=== PATIENT | male | born 1950 | race Caucasian/White ===

== ENCOUNTER 2024-11-21 22:18 | Inpatient (IN) | payer MEDICARE, OTHER, SELFPAY ==
[2024-11-21] VITALS (18 sets, daily range): BP systolic 91–190; BP diastolic 70–141; BMI 27.7
[2024-11-21 19:10] LABS: Hematocrit 46.3 % (39.0-52.0); Hemoglobin 16.0 g/dL (13.0-18.0); Mean Corp Hgb Conc. 34.6 g/dL (33.0-37.0); Mean Corpuscular Volume 86.5 fL (80.0-94.0); Nucleated Red Blood Cells % 0 % (-); Platelet Count 200 10^3/uL (130-400); Red Cell Dist. Width 13.2 % (11.5-14.5)
--- NOTE | 2024-11-21 19:16 | EDRN ---
per dr. kumar it's ok to give 4th nitro for ongoing chest pain
--- NOTE | 2024-11-21 19:18 | ED.GENMED ---
History of Present Illness
General
Chief Complaint: Chest Pain
Source: patient
Time Seen by Provider: 11/21/24 19:05
History of Present Illness
History of Present Illness:
74-year-old male presents emergency department complaints of central chest pain associated with discomfort at scapula bilaterally that began at approximately 2 PM today and continues. He states he came in now because he saw his early education teacher first
who referred him to the emergency department. He denies associated diaphoresis, dyspnea, nausea, vomiting, abdominal pain, headache, dizziness, numbness, tingling, neck pain. Patient does not feel the pain goes through to his back and is not
ripping or tearing in quality. It was not abrupt in onset. Patient denies prior history of CAD.
Past History
Past History
ED Past Medical History: HTN and Hypothyroidism
Social History
Tobacco: Non-smoker
Drug: None
Personal:
Living: with family
Phy Exam
Physical Exam
Physical Exam:
GENERAL: Alert , in no apparent distress
EYE: pupils equal and reactive
NECK: Supple, no significant adenopathy.
ENT: o/p clr, mmm.
CARDIAC: Regular rate and rhythm .
LUNGS: Clear breath sounds bilaterally, no acute respiratory distress, no wheezes/rales/rhonchi
ABDOMEN: Soft, without focal tenderness, no r/g, no cvat
NEUROLOGICAL: Alert and oriented, no focal neuro deficits
SKIN: Warm and dry, skin intact.
MUSCULOSKELETAL: No edema, well perfused.
PSYCH: Normal and appropriate interaction.
Course
Orders/Labs/Results
Orders:
Orders
11/21/24 18:45
Electrocardiogram (*1) Urgent
Reason for Study: Chest Pain
11/21/24 18:46
EKG- Treatment ONCE
11/21/24 19:01
Basic Metabolic Panel Urgent
Complete Blood Count/With Diff Urgent
PTT Urgent
Troponin I Urgent
11/21/24 19:20
Fentanyl Citrate/Pf [Sublimaze] 100 mcg .ROUTE .STK-MED ONE
Heparin 10,000 units .ROUTE .STK-MED ONE
Heparin 1000 Units/500 ml [Heparin] 1,000 units in 500 ml .ROUTE .STK-MED
Heparin Sodium,Porcine/Ns/Pf [Heparin 2000 Units/1000 ml] 2,000 unit in 1,000 ml .ROUTE .STK-MED
Lidocaine HCl/Pf [Xylocaine-Mpf 1% Vial] 100 mg .ROUTE .STK-MED ONE
Midazolam HCl [Versed] 2 mg .ROUTE .STK-MED ONE
Verapamil Injectable [Isoptin/Verapamil Injection] 5 mg .ROUTE .STK-MED ONE
11/21/24 19:21
Nitroglycerin [Tridil] 1,500 mcg .ROUTE .STK-MED ONE
11/21/24 19:44
Metoprolol [Lopressor] 5 mg .ROUTE .STK-MED ONE
11/21/24 19:45
Furosemide [Lasix] 20 mg .ROUTE .STK-MED ONE
Abnormal Lab Results
11/21/24
19:01
WBC 20.9 H 10^3/uL
(4.8-10.8)
MPV 11.2 H fL
(7.4-10.4)
Abs Immat Gran (auto) 0.1 H 10^3/uL
(0-0.05)
Absolute Neuts (auto) 19.0 H 10^3/uL
(1.4-6.5)
Neutrophils % 90.8 H %
(42.2-75.2)
Lymphocytes % 6.3 L %
(20.5-51.1)
Sodium 134 L mmol/L
(135-145)
BUN 28 H mg/dl
(9-20)
Glucose 234 H mg/dl
(70-99)
Troponin I 11.400 H* ng/ml
11/21/24 19:01
11/21/24 19:01
Vital Signs
Initial and Last Documented VS:
Initial Vital Signs
Temp Pulse Resp BP Pulse Ox
98.2 F 94 16 190/141 98
11/21/24 18:49 11/21/24 18:49 11/21/24 18:49 11/21/24 18:49 11/21/24 18:49
Last Documented Vital Signs
Temp Pulse Resp BP Pulse Ox
98.2 F 89 13 165/118 94
11/21/24 18:49 11/21/24 19:15 11/21/24 19:15 11/21/24 19:15 11/21/24 19:21
*Pulse Oximetry
SaO2: 94
Oxygen Mode of Delivery: Room air
Update Note
Update Note:
Patient presents to the Emergency Department with ___chest pain
Number and Complexity of Problems Addressed at the Encounter
� Chronic conditions affecting care:
� Acute Exacerbation and/or Progression of Chronic Illness:
� Differential Diagnosis includes: But not limited to STEMI, non-STEMI, ACS, pleurisy, pericarditis, etc. etc.
Amount and/or Complexity of Data to be Reviewed and Analyzed
� I performed an independent evaluation of and my interpretation is:
EKG: STEMI noted with ST elevations in the anterior leads with associated ST depressions inferiorly
CT:
Xrays:
Laboratory Studies: Nonspecific leukocytosis, markedly elevated troponin consistent with STEMI
Other:
� Review of other/old records reveals:
� Clinical information was obtained by an independent historian:
� Prescriptions/Medications Considered but not given:
� Further testing considered but not performed:
Risk of Complications and/or Morbidity or Mortality of Patient Management
� Social determinants of health affecting care:
� Discussion with other providers (PCP, Hospitalists, Consultants, etc):
� Escalation of care including admission/observation vs risk of discharge considered: While patient in triage, EKG brought to me consistent with STEMI, STEMI alert called and patient brought immediately back to room 40.
Medications initiated, IV placed, patient on monitor. Pain is improving status post nitroglycerin. Hypertension noted, continue with nitroglycerin. Case discussed with Dr. Marquita FLANAGAN who is on her way and as is the rest of the Fire Hydrant Operator team.
now at bedside, she was updated regarding diagnosis and plan of care. Patient overall well-appearing, no distress, no respiratory distress, no diaphoresis.
ED Attending Note
-
Portions of this chart may have been created with voice recognition software.� Occasional wrong word or��sound alike� substitutions may have occurred due to the inherent limitations of voice recognition software.
Discharge Plan
Departure
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
Date of Disposition: 11/21/24
Time of Disposition: 19:18
Admit to: minilab operator
Presentation/result/management discussed w/ accepting MD/DO: isac
Discharge Problem:
ST elevation (STEMI) myocardial infarction
Referrals:
Geo Villanueva MD [Family Provider, Internal Medicine]
Interventions
Interventions:
*Risk Screen - Suicide Last Done: 11/21/24 18:49
*General Assessment Last Done: 11/21/24 19:12
*Neglect/Abuse Screening Last Done: 11/21/24 18:49
*ED- Fall Risk Assessment Last Done: 11/21/24 19:12
*ED COVID-19 Vaccine History Last Done: 11/21/24 19:12
*ED Influenza Vaccine History Last Done: 11/21/24 19:12
ED- Cardiac Assessment Last Done: 11/21/24 19:16
Discharge Date and Time
Print Language: MEXICAN
[2024-11-21 19:19] LABS: APTT 23.6 Sec (23.4-35.0)
[2024-11-21 19:25] LABS: Blood Urea Nitrogen 28 mg/dl (9-20); Calcium 9.5 mg/dl (8.4-10.2); Carbon Dioxide 26 mmol/L (22-30); Chloride 100 mmol/L (98-107); Estimated Creatinine Clearance 49 ml/min; Glucose 234 mg/dl (70-99); Sodium 134 mmol/L (135-145); eGFR 58.01
[2024-11-21 19:38] LABS: Troponin I 11.400 ng/ml
[2024-11-21 19:55] LABS: ACT-LR - POC 189 Seconds (116-155)
[2024-11-21 20:15] LABS: ACT-LR - POC 277 Seconds (116-155)
[2024-11-21 21:18] LABS: ACT-LR - POC 300 Seconds (116-155)
[2024-11-21 21:51] LABS: ACT-LR - POC 268 Seconds (116-155)
--- NOTE | 2024-11-21 22:26 | HPS.HSE ---
Family Physician
-
Family Physician: Geo Villanueva
Chief Complaint
-
Chest pain
History of Present Illness
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 Given ongoing
symptoms he called his to pick him up who brought him to the emergency room. He had 8 out of 10 chest pain ongoing in the emergency room. He tells me that over the weekend he has been doing well and not having any symptoms. He continues to
work without any limitations. His ECG on presentation showed significant anterolateral ST elevations concerning for a ST elevation PR for which the heart catheterization team was activated. In the ED he received 4 sublingual nitroglycerin, 5000
units of IV unfractionated heparin, full dose aspirin and 180 mg of Brilinta. With this his chest pain had come down to 5.5 out of 10. Patient was emergently brought to the heart catheterization lab after detailed informed consent.
Medical History
Past Medical History
Past Medical History: Reports CVA, HTN and Hypothyroidism
Additional Past Medical History:
Stroke of unclear etiology years ago per the patient, no residual deficits.
Past Surgical History: Reports None
Social History
Tobacco: Non-smoker
Alcohol: None
Drug: None
Personal:
Living: With Family
Employment: Employed
Family History
Family History: Not pertinent
Allergies / Home Medications
Allergies reflects when Allergies were last updated in [employer].
Home Medications with original date entered in [employer]
Losartan 12.5 mg daily.
? Mixed formulary from specialty pharmacy for hypothyroidism
Allergy/Medication List:
Allergic to amoxicillin.
Review of Systems
-
A 12 point ROS was completed and negative except as noted: Yes
Physical Exam
Vital Signs
Vital Signs
Temp Pulse Resp BP Pulse Ox
98.2 F 88 13 165/118 93
11/21/24 18:49 11/21/24 19:30 11/21/24 19:30 11/21/24 19:15 11/21/24 19:30
Physical Exam
General: Well Developed, Well Nourished and Appears in Distress
HEENT: Moist mucous membranes
Respiratory: Rales and Non Labored Respirations
Cardiac: S1/S2, Tachycardia and JVD; No Peripheral Edema
GI: Soft, Non Tender, Non Distended and Normal Bowel Sounds
Genito-urinary: Deferred by me
Musculoskeletal: No Clubbing, No Cyanosis and No Edema
Skin: Warm and Dry
Neuro: AO x 3
Psych: Other
Laboratory Results
-
11/21/24 19:01
11/21/24 19:01
Laboratory Results
APTT 23.6 Sec (23.4-35.0) 11/21/24 19:01
Total Bilirubin Cancelled 11/21/24 19:01
AST Cancelled 11/21/24 19:01
ALT Cancelled 11/21/24 19:01
Alkaline Phosphatase Cancelled 11/21/24 19:01
Troponin I 11.400 ng/ml H* 11/21/24 19:01
Data Reviewed
-
Medical Tests (Nuc Med, Echo, EKG etc): Image Personally Visualized and interpreted
Impression/Plan
-
IMPRESSION: 74-year-old gentleman with past medical history of hypertension, hypothyroidism who presents with substernal chest discomfort radiating to his scapula starting about 2 PM while he was on his way to his materials branch chief/holistic doctor.
Given ongoing symptoms he called his to pick him up who brought him to the emergency room. He had 8 out of 10 chest pain ongoing in the emergency room. He tells me that over the weekend he has been doing well and not having any symptoms. He
continues to work without any limitations. His ECG on presentation showed significant anterolateral ST elevations concerning for a ST elevation PR for which the heart catheterization team was activated. In the ED he received 4 sublingual
nitroglycerin, 5000 units of IV unfractionated heparin, full dose aspirin and 180 mg of Brilinta. With this his chest pain had come down to 5.5 out of 10. Patient was emergently brought to the heart catheterization lab after detailed informed
consent.
Anterolateral ST elevation PR with 100% proximal LAD occlusion status post one 3.5 x 30 mm Medtronic [place] frontier drug-eluting stent, postdilated using IVUS guidance with a 3.75 mm NC balloon distally at high pressures and 4.0 mm NC balloon
proximally at high pressures with an excellent angiographic and IVUS based result.
Diffuse 70 to 80% mid LAD stenosis treated with one 2.75 x 26 mm Medtronic [place] frontier drug-eluting stent, postdilated using IVUS guidance with a 3.0 x 15 mm NC balloon at high pressures proximally.
Hypertension
Hypothyroidism
PLAN: 1. Extensively discussed all of the above with and [id number] in significant detail. They notified me that patient is very skeptical about Western medicine and believes in holistic approach. He is very skeptical investment
medications. Discussed and emphasized importance of medication compliance and at the urines and will continue to have discussions with patient.
2. Under uninterrupted dual antiplatelet therapy with daily baby aspirin and Brilinta for at least 1 year and then aspirin indefinitely.
3. High intensity statin. Check lipids and hemoglobin A1c with plan to aggressively manage secondary risk factors.
4. Given significant hypertension he was started on IV nitroglycerin drip to keep blood pressure systolically less than 150. Starting 2.5 mg of daily amlodipine and Toprol-XL as well. Given unclear baseline CKD holding home losartan for now.
5. Will have medicine consult for his hypothyroid management or clarify which medication he takes to continue.
6. Echocardiogram to assess biventricular function and rule out any significant valvular abnormalities.
7. Continue monitor on telemetry for at least 48 hours.
8. Referral for outpatient cardiac rehab.
--- NOTE | 2024-11-21 22:33 | ITS.CL.CATH ---
Coin Collector - Catheterization
Cardiac Catheterization
Procedure Report:
LEFT HEART CATHETERIZATION AND CORONARY INTERVENTION
Date of Procedure: November 21, 2024
Referring: [facility]
PROCEDURES:
1. Left heart catheterization, coronary angiogram.
2. Moderate sedation.
3. Successful percutaneous coronary artery intervention of 100% proximal LAD occlusion (Lesion Type C, LUISA 0 flow) status post one 3.5 x 30 mm Medtronic [place] frontier drug-eluting stent, postdilated using IVUS guidance with a 3.75 mm NC balloon
distally at high pressures and 4.0 mm NC balloon proximally at high pressures with an excellent angiographic and IVUS based result.
4. Successful percutaneous coronary artery intervention of diffuse 70 to 80% mid LAD stenosis treated with one 2.75 x 26 mm Medtronic [place] frontier drug-eluting stent, postdilated using IVUS guidance with a 3.0 x 15 mm NC balloon at high pressures
proximally.
5. IVUS
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
Given ongoing symptoms he called his to pick him up who brought him to the emergency room. He had 8 out of 10 chest pain ongoing in the emergency room. He tells me that over the weekend he has been doing well and not having any symptoms. He
continues to work without any limitations. His ECG on presentation showed significant anterolateral ST elevations concerning for a ST elevation [place] for which the heart catheterization team was activated. In the ED he received 4 sublingual
nitroglycerin, 5000 units of IV unfractionated heparin, full dose aspirin and 180 mg of Brilinta. With this his chest pain had come down to 5.5 out of 10. Patient was emergently brought to the heart catheterization lab after detailed informed
consent.
ACCESS: Right radial artery, 6Fr. sheath, under US guidance.
HEMODYNAMICS : (mmHg)
AO (s/d) : 143/117
LVEDP : 37
No significant gradient across the aortic valve to suggest aortic stenosis.
CORONARY FINDINGS
Dominance: Right
Left Main Trunk (LMT): Large caliber vessel that gives rise to the LAD and LCx branches and is free of angiographic disease. There is mild diffuse atherosclerotic plaque.
Left Anterior Descending Artery (LAD): Large caliber LAD with 100% proximal acute thrombotic occlusion and moderate calcification. This was intervened upon as noted below.
Left Circumflex Artery (LCx): Large caliber vessel that gives off 1 major obtuse marginal (OM) branches as it courses along the atrio-ventricular (AV) groove. Mid left circumflex into major OM branch has diffuse lesions up to 80% stenosis.
Right Coronary Artery (RCA): Large caliber dominant vessel that gives rise to the posterior descending artery (RPDA) and postero-lateral ventricular (RPLV) branches distally. Mid RCA has significant tortuosity and a hairpin turn proximal to the
bifurcation. Otherwise there is mild diffuse atherosclerotic plaque.
CORONARY INTERVENTION: The left coronary artery was selectively engaged using a 6 [place] EBU 3.5 guide. Additional heparin was given to maintain a therapeutic ACT throughout the case. A 190 cm 0.014 run-through wire was advanced into the mid LAD.
The culprit lesion was initially predilated using a 2.5 x 12 mm semicompliant balloon with LUISA I flow into the distal vessel. Multiple inflations were performed. The lesion was stented using a 3.5 x 30 mm Medtronic [place] frontier drug-eluting
stent and postdilated using a 3.75 mm NC balloon at high pressures distally and 4.0 mm NC balloon at high pressures proximally based on IVUS guidance. Unfortunately there were still significant no reflow noted for which multiple bouts of
intracoronary vasodilators were delivered using a twin pass microcatheter including nitroglycerin IC, adenosine IC and epinephrine. Despite this with persistently poor flow, decision was made to proceed with percutaneous intervention of diffuse 70
to 80% mid LAD stenosis. This lesion was predilated using a 2.5 x 20 mm semicompliant balloon with full expansion and subsequently stented using a 2.75 x 26 mm Medtronic [place] frontier drug-eluting which was postdilated using IVUS guidance with a
3.0 x 15 mm NC balloon at high pressures with an excellent angiographic and IVUS based result. Post PCI IVUS imaging showed that both stents were well apposed and well-expanded without evidence of distal or proximal stent edge dissections. Patient
had been loaded with 180 mg of Brilinta in the emergency room prior to the case. No acute complications.
SEDATION: 87 minutes of procedural sedation was utilized. IV Midazolam and IV Fentanyl were administered. An independent medical radiation therapist was present to assist with and help manage the patient's level of consciousness and physiologic status.
CORONARY INTERVENTION:
Closure Device: There were no immediate intra-procedural complications. The sheath was pulled in the dental lab technician and a vascular-band applied to the right wrist for radial artery hemostasis using the patent hemostasis technique.
CONCLUSIONS
1. Successful percutaneous coronary artery intervention of 100% proximal LAD occlusion (Lesion Type C, LUISA 0 flow) status post one 3.5 x 30 mm Medtronic [place] frontier drug-eluting stent, postdilated using IVUS guidance with a 3.75 mm NC balloon
distally at high pressures and 4.0 mm NC balloon proximally at high pressures with an excellent angiographic and IVUS based result.
2. Successful percutaneous coronary artery intervention of diffuse 70 to 80% mid LAD stenosis treated with one 2.75 x 26 mm Medtronic [place] frontier drug-eluting stent, postdilated using IVUS guidance with a 3.0 x 15 mm NC balloon at high pressures
proximally.
3. Mid left circumflex into major OM branch has diffuse lesions up to 80% stenosis.
4. Significantly elevated LVEDP at 37 mmHg.
RECOMMENDATIONS
1. Wean radial band per protocol. Monitor right hand perfusion and for bleeding from the radial site following removal of the vascular-band following trans-radial access.
2. Continue aggressive medical therapy and risk factor modification for secondary CAD prevention.
3. Continue ASA 81 mg daily for life.
4. Continue ticagrelor for at least 12 months of uninterrupted dual anti-platelet therapy given drug-eluting stent (MALIK) implantation to mitigate the risk of stent thrombosis. This is not to be stopped for any reason without the guidance of a
medical lab tech instructor.
5. Hydrate with normal saline to mitigate the risk of contrast-induced acute kidney injury.
6. Referral for outpatient cardiac rehab.
7. Echocardiogram to assess biventricular function and rule out any significant valvular abnormalities.
8. Discussed timing of staged intervention to mid left circumflex into OM.
Bonita Juarez MD, FACC, [facility]
[2024-11-21] MEDS: NORVASC 2.5 MG PO (23:11)
[2024-11-21] MEDS: CRESTOR 40 MG PO (23:11)
[2024-11-21] MEDS: TOPROL XL 25 MG PO (23:12)
[2024-11-22] VITALS (62 sets, daily range): BP systolic 76–148; BP diastolic 65–126; BMI 26.9
[2024-11-22 01:02] LABS: Troponin I > 400.000 ng/ml
--- NOTE | 2024-11-22 01:20 | PTCARENOTE ---
Received pt from stucco laborer @ 2210. Access through right radial. External pressure device-- 10 cc of air. Went on @ 21:59. Two stents to the proximal LAD. Pt came out with nitro gtt running @ 30 mcg through left AC. Pt c/o urinary pressure and the
inability to urinate-- order obtained for straight cath-- 800cc urine obtained. Pt drowsy, but responding to verbal cues. Discussed plan of care-- pt verbalizes understanding. Call bowling within reach.
--- NOTE | 2024-11-22 01:25 | PTCARENOTE ---
Pt c/o SOB and chest pain @ 00:30. Reached out to Dr. Juarez and Stanley Marr (CV PA). Order given for Nitro-- see APR. Pt stats 95% on 2L NC. Lung buenrostro clear. Pt does appear anxious and restless. Discussed plan of care-- pt verbalizes
understanding. Lights turned off, extra tubes and wires removed, and pt verbalizes feeling better.
--- NOTE | 2024-11-22 01:30 | PTCARENOTE ---
Pt's trop came back >400.000-- notified Stanley Marr (CV PA) per protocol
--- NOTE | 2024-11-22 02:07 | PTCARENOTE ---
Pt having hematuria-- each time pt has urinated, it has become darker. Denies discomfort with urination.
[2024-11-22] MEDS: MORPHINE SULFATE 1 MG IV (02:27)
--- NOTE | 2024-11-22 02:47 | PTCARENOTE ---
Pt continued to complain about chest, upper back, and neck pain rating it (9/10). EKG obtained, pt remains SR w/ 1st AV block. Unchanged from previous EKG per Stanley DODGE. RN reached out to Stanley Marr (NAYA DODGE)-- ordered morphine one time order.
When RN went in to check BP and administer, pt had a drop in BP to 81/67. Pt noncompliant with leaving cuff alone and on; needs feq reminders to not touch bp cuff-- RN readjusted cuff and got 76/65 BP. Pt was asymptomatic. Pt put into Trendelenburg
and pillow placed under legs-- nitro paused-- NAYA Marr at bedside. BP recovered to 99/88 and then 121/99. NAYA Angel instructed RN to resume nitro gtt at 15mcg/min and ok to administer one time order of morphine for chest/back pain.
Pt has been vague with symptoms. Noncompliant with BP cuff and precautions with radial site. External hemostasis band removed without issue @ 0240. Educated on precautions again.
[2024-11-22 04:39] LABS: Hematocrit 41.4 % (39.0-52.0); Hemoglobin 14.4 g/dL (13.0-18.0); Mean Corp Hgb Conc. 34.8 g/dL (33.0-37.0); Mean Corpuscular Volume 87.3 fL (80.0-94.0); Platelet Count 184 10^3/uL (130-400); Red Cell Dist. Width 13.1 % (11.5-14.5)
[2024-11-22 05:15] LABS: Blood Urea Nitrogen 25 mg/dl (9-20); Calcium 8.6 mg/dl (8.4-10.2); Carbon Dioxide 26 mmol/L (22-30); Chloride 102 mmol/L (98-107); Estimated Creatinine Clearance 49 ml/min; Glucose 185 mg/dl (70-99); HDL Cholesterol 54 mg/dl; LDL Cholesterol, Calculated 105 mg/dl; Potassium 4.1 mmol/L (3.5-5.1); Sodium 136 mmol/L (135-145); Very Low Density Lipoprotein 12 mg/dl (0-30); eGFR 58.01
[2024-11-22 05:39] LABS: Troponin I 335.000 ng/ml
[2024-11-22 09:09] LABS: Glycohemoglobin (HgbA1c) 5.1 % (4.0-5.6)
[2024-11-22] MEDS: TOPROL XL 25 MG PO (09:24)
[2024-11-22] MEDS: LOW STRENGTH ASPIRIN 81 MG PO (09:25)
[2024-11-22] MEDS: NORVASC 2.5 MG PO (09:25)
[2024-11-22] MEDS: HEPARIN 5000 UNITS SC ×2 (09:25→20:19)
[2024-11-22] MEDS: BRILINTA 90 MG PO ×2 (09:25→20:17)
[2024-11-22] MEDS: ZOFRAN 4 MG IV (09:26)
--- NOTE | 2024-11-22 09:27 | W.PN.CARDCBS ---
Addendum entered and electronically signed by Bonita Juarez MD 11/22/24 14:33:
I saw and examined the patient.
The Sole Edge Inker Machine's note was reviewed and I agree with the note.
Comment: Patient continues to describe some shortness of breath even at rest. She denies any recurrent chest discomfort or shoulder discomfort
Vital signs and lab work reviewed. Blood pressures intermittently still elevated. On exam there is a very flat affect, regular rate, normal S1 and S2, no murmurs, rubs or gallops, JVD with neck veins up to 10 cm of water, bibasilar rales, abdomen
is soft, nontender, nondistended with active bowel sounds, warm extremities without significant edema.
Troponin peaked and more than 400 and is downtrending. ECG showing signs of recent infarct.
Recommendations:
1. Extensive time was spent reviewing everything with the patient and explaining what happened and need for medications. With 2 LAD PCI in the setting of a ST elevation [place], continue dual antiplatelet therapy with daily baby aspirin and Brilinta
along with high intensity statin with LDL goal less than 55.
2. Echocardiogram pending today. Given significant troponin elevation, I suspect likely ischemic cardiomyopathy from recent infarct.
3. Aggressive IV diuresis given acute decompensated heart failure.
4. Aggressive management of cardiovascular risk factors. For now using amlodipine and beta-obi but depending on LVEF may have to switch medications to optimize GDMT.
5. Trend creatinine along with hemoglobin. Hemoglobin A1c is pending.
6. Referral for outpatient cardiac rehab.
7. Emphasize importance of a high-fiber Mediterranean type diet and medication compliance/adherence.
8. Discussed with him recommendation for staged PCI to mid left circumflex into OM however patient would like to think about this for now.
Bonita Juarez MD, [facility], [facility]
Original Note:
Today's Communication / Plan
-
Echo today
IV lasix this morning
zofran for nausea
cardiac rehab
cm consult re: med cost- brilinta, farxiga
check thyroid studies
UA/Culture
monitor tele another 24-48h
Impression / Plan
-
PCP: Geo Segovia MD
CDY: None prior to admission, seen by Bonita Juarez MD
74 y/o, PMH HTN, Hypothyroidism. He endorses a recent UTI and was treated with 10 day course bactrim, and when he developed mild hematuria on day 9, he was instructed to stop it and start QID amoxicillin. This in turn gave him nausea, diarrhea and
chest pain, which landed him in the ER as noted. He states he takes losartan 12.5mg daily as well as aspirin 81mg daily for a stroke that was approx 20 years ago, found on diagnostic studies, per pt.
New onset SSCP rad to scapula/back initially attributed to antibiotics for UTI, brought him to ER after persistent symptoms. Denies any prior cp and works without limitation. Progressive CP in ER 09/[address]ations on EKG and
brought emergently to foundry laborer coreroom. Post LAD PCI x2 MALIK. Still with some residual chest pain and nausea this morning, but states it has improved since arrival.
LHC- 100% prox LAD, s/p angioplasty/MALIK
70-80% diffuse mid LAD, s/p angioplasty/MALIK
75-85% mid LCx/OM
LVEDP 37- 20mg IV lasix given post procedure
IMPRESSION:
Acute Anterolateral STEMI
s/p LAD PCI w/Prox MALIK, Mid MALIK, 11/21/24
Residual LCx/OM disease- likely staged PCI as outpt
HTN
HLD
Hypothyroidism
Remote CVA
Recent UTI w/hematuria
PLAN:
Tele- NSR w/occasional 4-8bt NSVT, asymptomatic
Residual chest pain/nausea- zofran ordered
Troponin peak >400, now drifting down
DAPT w/asa, brilinta- CM checking cost
Echo today
Moderate response to lasix post procedure with elevated LVEDP- will give additional 40mg IV now for some dyspnea- await echo results- will have cm check farxiga cost as well
New start metoprolol 25mg/d- will manager of change to carvedilol 3.125mg BID, amlodipine 2.5mg/d- monitor trends
Supposedly taking losartan 12.5/d prior to admission but BPs 190s on arrival, creat 1.3- BPs now improved and creat stable post dye load- will monitor before restarting
Lipid profile noted- start high intensity statin therapy- rosuvastatin 40/d
cardiac rehab today
Residual LCx/OM CAD- will likely stage PCI as outpt
check TSH, FT4 today
Will sent repeat UA/Culture- denies any dysuria/hematuria
long discussion re: diagnosis, meds, treatment, risks of noncompliance, all questions answered. Requested medication profiles and RN will provide.
Followup at [facility] at d/c
monitor on tele another 24-48h
Progress Note - Signs And Displays Sales Representative
Subjective
Date of Service: November 22, 2024
Mild chest pain 2-3/10, improved since arrival and post stenting
Also some dyspnea as well as nausea/dry heaving this morning
radial cath site without pain
oob to chair/bathroom but with some fatigue and weakness this morning
Objective
Labs:
11/22/24 04:06
11/22/24 04:06
Labs
Hgb 14.4 g/dL (13.0-18.0) 11/22/24 04:06
Hct 41.4 % (39.0-52.0) 11/22/24 04:06
Plt Count 184 10^3/uL (130-400) 11/22/24 04:06
APTT 23.6 Sec (23.4-35.0) 11/21/24 19:01
Sodium 136 mmol/L (135-145) 11/22/24 04:06
Potassium 4.1 mmol/L (3.5-5.1) 11/22/24 04:06
BUN 25 mg/dl (9-20) H 11/22/24 04:06
Creatinine 1.3 mg/dL (0.7-1.3) 11/22/24 04:06
Glucose 185 mg/dl (70-99) H 11/22/24 04:06
Troponins
11/21/24 11/21/24 11/22/24
19:01 23:23 04:06
Troponin I 11.400 H* > 400.000 H* D 335.000 H*
Vital Signs and I&O:
Vital Signs
Temp Pulse Resp BP Pulse Ox
98.1 F 75 16 139/113 95
11/22/24 07:53 11/22/24 09:24 11/22/24 07:53 11/22/24 09:24 11/22/24 07:53
Vital Signs
Temp Pulse Resp BP Pulse Ox
98.1 F 75 16 139/113 95
11/22/24 07:53 11/22/24 09:24 11/22/24 07:53 11/22/24 09:24 11/22/24 07:53
Intake & Output
11/20/24 11/21/24 11/22/24 11/23/24
06:59 06:59 06:59 06:59
Intake Total 480 / 480
Output Total 950 / 950
Balance -470 / -470
Physical Exam
Physical Exam
AAOX3, MAEE 5/5
RRR S1 S2 no murmurs
CTA bilat, non labored
soft abd, + bs
right radial cath site with some ecchymosis/bruising, no ht/bleeding, non tender
bilat extremities w/palpable distal pulses, no edema
[2024-11-22 10:47] LABS: Urine Character Clear (Clear)
[2024-11-22 10:53] LABS: Urine Red Blood Cell 50-60 /HPF (0-2); Urine White Cell 16-20 /HPF (0-5)
--- NOTE | 2024-11-22 11:47 | CM ---
spoke topt in room, he is prev indep, lives with his s.o. in a 1 story condo with no steps to enter. he denies any dme's or dc planning needs. plan is for dc to home when medically stable. awaiting his s.o. with his wallet for his insurance cards.
[2024-11-22 11:52] LABS: Troponin I 209.000 ng/ml
[2024-11-22 11:55] LABS: TSH 0.77 uIU/ml (0.47-4.68)
[2024-11-22] MEDS: LASIX 40 MG IV (12:17)
[2024-11-22] MEDS: COREG 3.125 MG PO ×2 (12:17→20:18)
--- NOTE | 2024-11-22 14:30 | CM ---
Addendum entered by Enriqueta Molina 11/22/24 15:19:
priced: pt can use good RX for ticagrelor- $32/month and farxiga 30 day free along with the zero copay card. pt is aware and agreeable. both coupons placed in pts red dc folder
Original Note:
priced meds with pts perscript plan- [facility]-
brilinta first month- $371.37- after he pays the remaining $590 deductible he pays 31% of tier 4 med or- $114/month
Farxiga- first month is $514.84- then he pays 19% of the cost of tier 3 med or- 114/month
--- NOTE | 2024-11-22 16:26 | CM ---
priced entresto- his copay is $135/month he can use the 30 day free coupon, placed in pts red dc folder
--- NOTE | 2024-11-22 16:28 | CM ---
[facility] [place]- pt can get ticagrelor at [facility] for $32/month with a good rx coupon ( placed in pts red dc folder.)
[facility] [place]- his first month he can use the 30 day free coupon- after that pt pay 19% cost of med for tier 3 - approx $114
[2024-11-22] MEDS: LASIX 80 MG IV (16:43)
[2024-11-22] MEDS: CRESTOR 40 MG PO (16:44)
[2024-11-22] MEDS: ENTRESTO 24 MG/26 MG 1 TAB PO (20:18)
[2024-11-22] MEDS: TYLENOL 650 MG PO (20:26)
[2024-11-23] VITALS (28 sets, daily range): BP systolic 56–145; BP diastolic 30–119; BMI 26.7
[2024-11-23 05:01] LABS: Hematocrit 42.5 % (39.0-52.0); Hemoglobin 14.9 g/dL (13.0-18.0); Mean Corp Hgb Conc. 35.1 g/dL (33.0-37.0); Mean Corpuscular Volume 85.3 fL (80.0-94.0); Platelet Count 148 10^3/uL (130-400); Red Cell Dist. Width 13.1 % (11.5-14.5)
--- NOTE | 2024-11-23 05:19 | PTCARENOTE ---
Addendum entered by Siri Myers RN 11/23/24 05:46:
Pt OOB to the scale. Pt started leaning to the left side, stare blankly, not responding to the questions and became unresponsive. Pt safely assisted to the bed. Pt regained consciousness in a few seconds. Pt able to answer all questions, following
commands. BP 107/81 HR 73. Pt stated that he 'felt lightheaded because he didn't sleep and had too much blood pressure medications.' Pt instructed to use call bowling for any assistance or get out of bed. Safety measures in place. CVPA made aware.
Original Note:
Critical abnormal EKG in am. CVPA made aware. Pt denies chest pain. No new orders
[2024-11-23 05:25] LABS: Blood Urea Nitrogen 36 mg/dl (9-20); Calcium 9.1 mg/dl (8.4-10.2); Carbon Dioxide 25 mmol/L (22-30); Chloride 101 mmol/L (98-107); Estimated Creatinine Clearance 40 ml/min; Glucose 131 mg/dl (70-99); Potassium 4.0 mmol/L (3.5-5.1); Sodium 133 mmol/L (135-145); eGFR 45.21
[2024-11-23] MEDS: COREG 3.125 MG PO (09:53)
[2024-11-23] MEDS: ENTRESTO 24 MG/26 MG 1 TAB PO (09:53)
[2024-11-23] MEDS: LOW STRENGTH ASPIRIN 81 MG PO (09:53)
[2024-11-23] MEDS: FARXIGA 10 MG PO (09:53)
[2024-11-23] MEDS: HEPARIN 5000 UNITS SC (09:53)
[2024-11-23] MEDS: BRILINTA 90 MG PO ×2 (09:53→20:11)
[2024-11-23] MEDS: LASIX 40 MG IV (09:54)
--- NOTE | 2024-11-23 10:02 | W.PN.CARDCBS ---
Today's Communication / Plan
-
Increase activity. Continue to follow on telemetry.
Continue aspirin and Brilinta.
Hemoglobin stable at 14.
LDL at 105. Continue Crestor.
White blood cell count remains elevated with abnormal UA. May need to consult ID.
LVEF 30 to 35%. Continue carvedilol. Creatinine up to 1.6 and he has some low blood pressure. Will hold p.m. Entresto and follow. Continue Farxiga.
He has diuresed and we will hold off on further Lasix for now until creatinine settles out.
Elevated creatinine could be from some mild contrast-induced nephropathy from cardiac cath
Discussed plan at length with patient and .
Tentative plan is for left circumflex PCI Monday
Impression / Plan
-
PCP: Geo Segovia MD
CDY: None prior to admission, seen by Bonita Juarez MD
74 y/o, PMH HTN, Hypothyroidism. He endorses a recent UTI and was treated with 10 day course bactrim, and when he developed mild hematuria on day 9, he was instructed to stop it and start QID amoxicillin. This in turn gave him nausea, diarrhea and
chest pain, which landed him in the ER as noted. He states he takes losartan 12.5mg daily as well as aspirin 81mg daily for a stroke that was approx 20 years ago, found on diagnostic studies, per pt.
New onset SSCP rad to scapula/back initially attributed to antibiotics for UTI, brought him to ER after persistent symptoms. Denies any prior cp and works without limitation. Progressive CP in ER 09/[address]ations on EKG and
brought emergently to labor representative. Post LAD PCI x2 MALIK. Still with some residual chest pain and nausea this morning, but states it has improved since arrival.
LHC- 100% prox LAD, s/p angioplasty/MALIK
70-80% diffuse mid LAD, s/p angioplasty/MALIK
75-85% mid LCx/OM
LVEDP 37- 20mg IV lasix given post procedure
IMPRESSION:
Acute Anterolateral STEMI
s/p LAD PCI w/Prox MALIK, Mid MALIK, 11/21/24
Residual LCx/OM disease-
HTN
HLD
Hypothyroidism
Remote CVA
Recent UTI w/hematuria
Echocardiogram November 22, 2024, EF 30 to 35%, severe hypokinesis of the mid to distal anterior, anteroseptal, and inferoapical wall. Mild MR, mild to moderate TR, PA pressure 37
PLAN:
Patient overall remains relatively stable. Creatinine is up to 1.6. Will hold Entresto today.
Cath results and echo were reviewed with patient and . He is agreeable to proceed with circumflex PCI on Monday.
Continue aspirin, Brilinta, carvedilol.
Weight is overall down. With creatinine up to 1.6 will hold off on diuresis. PA pressure on echo was in the 30s.
Continue Farxiga.
Urinalysis is abnormal with white cells and leukocyte esterase's. Await urine culture. May need ID help regarding recent UTI and elevated white blood cell count.
We had a lengthy discussion regarding the pathophysiology of coronary artery disease and long-term management.
Telemetry did have a brief 3 beat run of nonsustained ventricular tachycardia. Continue to follow.
Increase activity today.
Followup at [facility] at d/c
Progress Note - Discharge Planner
Subjective
Date of Service: November 23, 2024
No new chest pains. Denies any dizziness.No palpitations.
Objective
Labs:
11/23/24 03:41
11/23/24 03:41
Labs
Hgb 14.9 g/dL (13.0-18.0) 11/23/24 03:41
Hct 42.5 % (39.0-52.0) 11/23/24 03:41
Plt Count 148 10^3/uL (130-400) 11/23/24 03:41
APTT 23.6 Sec (23.4-35.0) 11/21/24 19:01
Sodium 133 mmol/L (135-145) L 11/23/24 03:41
Potassium 4.0 mmol/L (3.5-5.1) 11/23/24 03:41
BUN 36 mg/dl (9-20) H 11/23/24 03:41
Creatinine 1.6 mg/dL (0.7-1.3) H 11/23/24 03:41
Glucose 131 mg/dl (70-99) H 11/23/24 03:41
Troponins
11/21/24 11/21/24 11/22/24
19:01 23:23 04:06
Troponin I 11.400 H* > 400.000 H* D 335.000 H*
11/22/24
10:42
Troponin I 209.000 H* D
Vital Signs and I&O:
Vital Signs
Temp Pulse Resp BP Pulse Ox
97.8 F 81 18 107/81 93
11/23/24 03:37 11/23/24 06:30 11/23/24 03:37 11/23/24 04:49 11/23/24 03:37
Vital Signs
Temp Pulse Resp BP Pulse Ox
97.8 F 81 18 107/81 93
11/23/24 03:37 11/23/24 06:30 11/23/24 03:37 11/23/24 04:49 11/23/24 03:37
Intake & Output
11/21/24 11/22/24 11/23/24 11/24/24
06:59 06:59 06:59 06:59
Intake Total 480 / 480
Output Total 950 / 950 1075 / 1075
Balance -470 / -470 -1075 / -1075
Physical Exam
Physical Exam
GEN: No distress, awake, Ox3
HEENT: supple, anicteric, mmm
LUNGS: CTA, no wheezes/rales
CV: Reg, S1/S2, 1/6 syst LSB, S3+
ABD: soft, BS+, NT/ND
EXT: No edema
NEURO: Gross non-focal
SKIN: No rash
[2024-11-23] MEDS: CORDARONE 103 MG IV ×2 (11:37→17:35)
[2024-11-23] MEDS: CORDARONE 259 MG IV ×2 (11:49→18:23)
--- NOTE | 2024-11-23 11:59 | W.PN.UPDATE ---
Update Note
Progress Note Update
Called to see patient for new onset atrial fibrillation with rapid ventricular rates and marked hypotension. The patient was having episodes of dizziness this morning and then went suddenly into rapid atrial fibrillation. His systolic blood
pressure was 65/40. The patient was laid supine. He was awake and conversing. IV amiodarone 150 mg bolus was given and ventricular rate improved from 150 bpm to 110 bpm. An amiodarone drip was initiated.
IV Levophed was initiated and a drip was started. Systolic blood pressure improved to 90/60. The patient's dizziness did slightly improve
He will be transferred to the intensive care unit for further close monitoring and blood pressure support with Levophed. Will start IV heparin.
If he remains hypotensive, will need to consider cardioversion. I would prefer to start amiodarone and have that medicine on board prior to cardioversion unless unstable.
Discussed with family and inspector advanced composite.
cc time 48 minutes
--- NOTE | 2024-11-23 12:10 | PTCARENOTE ---
Received pt @ 0700. Pt is AAOx3 SR on the monitor VSS. denies cp. Rt radial cath site dressing c/d/i. Pt was instructed to call nurse prior to ambulation bed alarm in use.
--- NOTE | 2024-11-23 12:16 | RR ---
A Rapid Response was called on this patient, please see Rapid Response form.
--- NOTE | 2024-11-23 12:17 | PTCARENOTE ---
Approximately 1105 Pt was in A fib RVR on the monitor. EKG done BP 88/77. Pt c/o dizziness repeat sbp 60's MANAGER OF ADMINISTRATION was called and Dr. Song at bedside. Amio bolus and gtt up and Levophed initiated. Pt was transferred to higher level of care. See
Flowsheet for VS
--- NOTE | 2024-11-23 12:37 | PTCARENOTE ---
1110 Bp 68/49 NSS IVF w/o
[2024-11-23] MEDS: PITRESSIN 100 IV ×2 (13:00→20:12)
--- NOTE | 2024-11-23 13:14 | OR.RPT ---
Operative Report
Operative Report
Left Radial Arterial catheter placement
Indication. Hypotension, 2 pressors infusing, need for invasive blood pressure monitoring
Consent: Informed consent was obtained from patient
Bedside ultrasound was used to confirm patency of left radial artery. Under sterile condition area was subsequently cleaned and a drape was placed. 1 mL of lidocaine was injected locally for local anesthesia. Under direct ultrasound
visualization,, radial artery was cannulated. Once blood was noted in the chamber guidewire was advanced. Arterial catheter was subsequently advanced over the guidewire, and then guidewire was removed. Pressure tubing was subsequently attached to
the catheter and arterial waveform was noted on the monitor. Subsequently a dressing was placed.
Complications: None
Date of service: 11/23/2024
--- NOTE | 2024-11-23 13:16 | CON.INTV ---
Consultation
Consultation Request
Date/Time Consultation Requested: 11/23/2024
Date/Time Consultation Performed: 12/03/2024
Medical History
-
Chief Complaint: Palpitations, hypotension
History of Present Illness:
Patient is a 74 gentleman with history of hypertension, hypothyroidism who presented to the hospital with substernal chest discomfort radiating to scapular region. Patient was noted to have elevated troponin and was diagnosed with ST elevation [place].
Patient was emergently taken to Staff Climate Scientist and had PCI performed of LAD. He was recovering well postprocedure. On 11/23, patient developed palpitations, atrial fibrillation with rapid ventricular rate as well as hypotension. Rapid response was
called. Patient was given amiodarone bolus followed by infusion. Hypotension persisted and he was started on Levophed, subsequently transferred to ICU. Sap Portal Developer consultation was requested for further input.
During my evaluation patient was initially on Levophed at 6, quickly escalated up to 14 in view of hypotension. Vasopressin was emergently added, emergent A-line was placed. Discussed with cardiology service.
Past Medical History
Past Medical History: Reports CVA, HTN and Hypothyroidism
Additional Past Medical History:
Stroke of unclear etiology years ago per the patient, no residual deficits.
Past Surgical History: Reports None
Social History
Tobacco: Non-smoker
Alcohol: None
Drug: None
Personal:
Living: With Family
Employment: Employed
Family History
Family History: Not pertinent
Allergies / Home Medications
Allergies
Allergy/AdvReac Type Severity Reaction Status Date / Time
amoxicillin Allergy nausea/diar Verified 11/22/24 15:56
katerine
Home Medications
�Medication �Instructions �Recorded �Confirmed �Last Taken �Type
aspirin 81 mg chewable tablet 81 mg PO DAILY 11/22/24 11/22/24 Unknown History
carvedilol 3.125 mg tablet 3.125 mg PO BID #60 tabs 11/22/24 Unknown Rx
dapagliflozin propanediol 10 mg 10 mg PO DAILY #30 tabs 11/22/24 Unknown Rx
tablet
losartan 25 mg tablet 12.5 mg PO DAILY 11/22/24 11/22/24 Unknown History
rosuvastatin 40 mg tablet 40 mg PO DAILY #30 tabs 11/22/24 Unknown Rx
sacubitril 24 mg-valsartan 26 mg 1 tab PO BID #60 tabs 11/22/24 Unknown Rx
tablet
ticagrelor 90 mg tablet 90 mg PO BID #60 tabs 11/22/24 Unknown Rx
Review of Systems
-
Neuro: Other (Feels cold, mildly dizzy. Reports palpitations. No chest pain, no shortness of breath.)
Vitals / Labs / Diagnostic Testing
Vital Signs
Temp Pulse Resp BP Pulse Ox
97.9 F 131 22 87/76 88
11/23/24 12:04 11/23/24 13:00 11/23/24 13:00 11/23/24 13:00 11/23/24 12:50
Microbiology
11/22/24 10:37 Urine Urine Culture - Final
No Significant Growth
Diagnostic Testing:
Physical Exam
-
HEENT: Normocephalic
Cardiovascular: S1/S2 (Tachycardic, irregularly irregular rhythm) and Irregular Rhythm
Respiratory: Clear
GI: Soft and Non Distended
Neurology: Awake and Alert
Skin: Warm
General: Comfortable
Assessment
-
#1. STEMI
- s/p PCI of LAD on 11/21/24
- Chest pain-free, currently on aspirin, Brilinta, rosuvastatin.
- Carvedilol on hold in view of hypotension, hold Entresto as well
#2. Atrial fibrillation with RVR and hypotension
- Patient developed A-fib with RVR on 11/23.
- Rapid response called in view of hypotension. Patient given amiodarone bolus followed by infusion. Required Levophed hence transferred to ICU
- Rising Levophed drip noted up to 14, added vasopressin, arterial line placed
- Cardiology service on case, monitor response to amiodarone, low threshold to proceed with cardioversion in view of hemodynamic instability
- Heparin infusion
#3. HFrEF with LEVF 30-35%, Stage I diastolic dysfunction
- Hold off any maintenance IV fluids
- Entresto on hold in view of hypotension
- Suspect ischemic cardiomyopathy in the setting of myocardial infarction
#4. Mild Pulmonary HTN
- PASP 37, Mild to moderate TR, suspect Group II with HFrEF
- Keep oxygen saturation above 90%, target euvolemia
Other medical diagnoses:
- HTN
- HLD
- Hypothyroidism
- h/o CVA
- Pyuria, cultures negative
DVT prophylaxis. Heparin drip being started for atrial fibrillation
Critical Care time 68 mins -- The patient is admitted for acute critical illness for the treatment of vital organ failure and/or prevention of further life-threatening conditions. Total care includes time spent in review of history, physical exam,
medications, hemodynamic/ventilator parameters, laboratory data, imaging and discussion with house staff, pharmacy, respiratory therapy, building construction foreman, and nursing.
Data:
ECHO 11/2024: 1. Normal LV size with moderately decreased left ventricular function.
2. Ejection fraction is 30-35% by visual assessment.
3. There is severe hypokinesis of the mid to distal anterior, mid to distal anteroseptal, apical and inferoapical torres.
4. Mild left ventricular hypertrophy.
5. Stage I diastolic dysfunction suggestive of abnormal relaxation.
6. Right ventricular size and systolic function are within normal limits.
7. Mild mitral valve regurgitation.
8. Mild to moderate tricuspid regurgitation. Estimated pulmonary artery pressure of 37 mmHg assuming a right atrial pressure of 3 mmHg.
9. Aortic annulus is mildly dilated at 3.7cm
10. Trivial pericardial effusion is noted.
11. There are no prior studies available for comparison.
[facility] 11/2024: 1. Successful percutaneous coronary artery intervention of 100% proximal LAD occlusion (Lesion Type C, LUISA 0 flow) status post one 3.5 x 30 mm Medtronic [place] frontier drug-eluting stent, postdilated using IVUS guidance with a 3.75 mm
NC balloon distally at high pressures and 4.0 mm NC balloon proximally at high pressures with an excellent angiographic and IVUS based result.
2. Successful percutaneous coronary artery intervention of diffuse 70 to 80% mid LAD stenosis treated with one 2.75 x 26 mm Medtronic [place] frontier drug-eluting stent, postdilated using IVUS guidance with a 3.0 x 15 mm NC balloon at high pressures
proximally.
3. Mid left circumflex into major OM branch has diffuse lesions up to 80% stenosis.
4. Significantly elevated LVEDP at 37 mmHg.
[2024-11-23] MEDS: HEPARIN 25000 UNITS/250 ML IV (13:17)
[2024-11-23 14:29] LABS: Hematocrit 40.4 % (39.0-52.0); Hemoglobin 14.3 g/dL (13.0-18.0); Mean Corp Hgb Conc. 35.4 g/dL (33.0-37.0); Mean Corpuscular Volume 84.5 fL (80.0-94.0); Platelet Count 150 10^3/uL (130-400); Red Cell Dist. Width 13.2 % (11.5-14.5)
--- NOTE | 2024-11-23 14:39 | ITS.CL.CARDI ---
Internetworking Technician - Cardioversion
Cardioversion
Procedure Report:
Date of Procedure: 11/23/24
Procedure: Cardioversion
Indication: Symptomatic atrial fibrillation with unstable BP
Performing Physician: Adams Song MD
Technique: The patient was in the ICU with rapid ventricular rates and marked hypotension. IV Amiodarone, Levophed and vasopressin were started with continued hypotension. Consent obtained and pt sedated via anesthesia.
Urgent CV was performed. using 200J, 360J, and 360J of synchronized biphasic current, the patient failed CV x3
Conclusion: Failed cardioversion from atrial fibrillation to sinus rhythm.
Recommendation: Routine post cardioversion care. Continue anticoagulation and load with oral Amiodarone..
[2024-11-23 14:52] LABS: Blood Urea Nitrogen 41 mg/dl (9-20); Calcium 7.7 mg/dl (8.4-10.2); Carbon Dioxide 16 mmol/L (22-30); Chloride 103 mmol/L (98-107); Estimated Creatinine Clearance 34 ml/min; Glucose 199 mg/dl (70-99); Magnesium 2.0 mg/dl (1.6-2.3); Potassium 4.0 mmol/L (3.5-5.1); Sodium 127 mmol/L (135-145); eGFR 36.79
--- NOTE | 2024-11-23 15:02 | CON.ID ---
Consultation
-
Date/Time Consultation Requested: 11/23/2024 1010
Date/Time Consultation Performed: 11/23/2024 1500
Requesting Provider: Dr. Song
Performing Provider: Dr. Guy
Reason for Consultation: Leukocytosis
Chief Complaint / Past History
History of Present Illness
Bayron Finn is a 74-year-old man being evaluated at the request of Dr. Delgadillo in regards to leukocytosis. History is obtained from chart review, along with patient interview.
The patient has a significant past medical history of HTN and hypothyroidism and presented to the emergency room at [facility] on 11/21/2024 with complaints of central chest pain beginning earlier in the day. His initial EKG showed
significant anterior lateral ST elevations, and the patient was taken emergently to the [facility] where he was found to have a 100% proximal LAD occlusion. Earlier today, he developed A-fib with rapid ventricular response and subsequent hypotension.
He has been started on Levophed and transferred to the ICU. Since admission he has had a marked leukocytosis which has risen. Given the leukocytosis and an abnormal urinalysis, there is concern for possible urinary tract infection contributing to
hypotension. Infectious Diseases is asked to comment on further antimicrobial therapy.
Currently the patient denies any fevers or chills. He denies any current chest pain. He reports some dysuria present, but he does currently have a Johnson catheter in place. The patient reports that he previously was on a course of antibiotics
prescribed by his PCP. He believes that they may have been prescribed because of his elevated white count, but is not sure at this time.
Past History
Additional Past Medical History:
HTN
Hypothyroidism
CAD with recent AL
Past Surgical History: None
Allergy History:
amoxicillin Allergy (Verified 11/22/24 15:56)
nausea/diarrhea
Medications Reviewed: Yes
Current Antibiotics:
None
Social History
Tobacco: Non-Smoker
Alcohol: None
Drug: None
Personal:
Living: With Family
Employment: Employed
Family History
Family History: Not Pertinent
Review of Systems
Vital Signs
Temp Pulse Resp BP Pulse Ox
97.9 F 131 22 87/76 88
11/23/24 12:04 11/23/24 13:00 11/23/24 13:00 11/23/24 13:00 11/23/24 12:50
Physical Exam
Physical Exam
Constitutional: Acutely Ill and Non-toxic
Head: Normocephalic
Eyes: Pupils Equal, Pupils Round, No Conjunctival Hemorrhage and Sclera Anicteric
Oral: No Thrush and No Ulcers
Cardiovascular: Irregular Rate (tachy) and S1/S2; Negative S3/S4 or Murmur
Pulmonary: Clear; Negative Wheezes, Rales or Rhonchi
Gastrointestinal: Soft, Non Tender, Non Distended and Normal Bowel Sounds
Genito-Urinary: Johnson and Clear Urine; Negative Turbid Urine or Hematuria
Extremities: Edema; Negative Cyanosis or Erythema
Neurological: Awake and Alert
Psychological: Calm
Lab / Diagnostic Study Results
11/23/24 14:23
11/23/24 14:23
Abs Immat Gran (auto) 0.1 10^3/uL (0-0.05) H 11/21/24 19:01
Absolute Neuts (auto) 19.0 10^3/uL (1.4-6.5) H 11/21/24 19:01
Absolute Lymphs (auto) 1.3 10^3/uL (1.2-3.4) 11/21/24 19:01
Absolute Monos (auto) 0.5 10^3/uL (0.1-0.6) 11/21/24 19:01
Absolute Basos (auto) 0.1 10^3/uL (0-0.2) 11/21/24 19:01
Immature Gran % 0.5 % (0-0.5) 11/21/24 19:01
Neutrophils % 90.8 % (42.2-75.2) H 11/21/24 19:01
Lymphocytes % 6.3 % (20.5-51.1) L 11/21/24 19:01
Monocytes % 2.2 % (1.7-9.3) 11/21/24 19:01
Eosinophils % 0.0 % (0-6) 11/21/24 19:
Basophils % 0.2 % (0-2) 11/21/24 19:01
Ur Squamous Epith Cells 3-5 /LPF (Few) 11/22/24 10:37
Microbiology Results
Micro:
11/22/24 10:37 Urine Culture - Final
Urine No Significant Growth
Imaging:
11/22/2024 ECHO (TTE): normal LV size with moderately decreased LVEF. EF approximately 30 to 35%. Severe hypokinesis of the mid to distal anterior, mid to distal anterior septal, apical and inferior apical torres. Mild left ventricular
hypertrophy. Mild mitral valve regurgitation. Please see full dictation for additional detail.
Assessment / Plan
S/p STEMI
- s/p PCI with stent placement
Leukocytosis
A-fib
Hypotension
- Currently on 2 pressors
Hx HTN
Hypothyroidism
CAD
Recommendations:
Patient reports prior history of treatment for urinary tract infection with Bactrim. Not clear whether current hypotension is related to A-fib with RVR or clinical sepsis.
Check blood cultures x 2
Will initiate empiric cefepime pending further culture data.
Follow white count and temperature curve.
Wean pressors as possible, maintaining MAP greater than 65
Further recommendations as additional data is returned
Patient currently critically ill on dual pressor therapy in ICU.
[2024-11-23 15:10] LABS: APTT 42.0 Sec (23.4-35.0)
[2024-11-23] MEDS: LEVOPHED 250 IV ×2 (15:31→18:23)
[2024-11-23] MEDS: LANOXIN 250 MCG IV (15:33)
[2024-11-23] MEDS: PACERONE 400 MG PO (15:33)
[2024-11-23 16:15] LABS: B.E. -6.6 mmol/L; O2 Saturation % 97.8 % (94-98); PCO2 22 mmHg (35-48); PO2 97 mmHg (83-108)
[2024-11-23 16:17] LABS: HCO3 15.3 mmol/L (21-28)
--- NOTE | 2024-11-23 17:17 | W.PN.UPDATE ---
Update Note
Progress Note Update
Addendum: Re-evaluated thru the day.
#. Shock, Cardiogenic. Patient continues to need pressors. Levo @22 and Vasopressin @ 0.03
- Lactate 2.7, ABG with normal pH, developing metabolic acidosis with respiratory compensation
- Empirically started on Antibiotics, Cefepime, blood cultures
- Place Right IJ central line, CXR pending
- Urine out put low, Cr rising, suspect 'Cardiogenic shock' in the setting of low EF anf A fib with RVR
- RVR persistent despite Amiodarone bolus, infusion and Cardioversion X3. Digoxin 250 mcg given without success
- Developing SPENCER suspect due to decreased cardiac out put, hypotension and prior contrast exposure
- Start Sterile water with Bicarbonate infusion @ 75 ml per hour. Serial labs, lactate and ABG
Additional 55 min of critical care time spent.
D/w Cardiology and ID consultants. Transfer to [facility] being considered.
Updated at bedside
--- NOTE | 2024-11-23 17:22 | OR.RPT ---
Operative Report
Operative Report
Right IJ Central Line placement
Indication: Shock, need central access for multiple pressors
Consent: Obtained from Patient. Spouse also at bedside.
Time-out was performed and patient was placed in supine position. Ultrasound was used to assess patency of Right IJ vein. Under sterile conditions area was cleaned with chlorhexidine and then a full body drape was placed. 3 mL of local anesthesia
with lidocaine was injected. Under real-time ultrasound guidance, long axis view, the needle was inserted and vein was punctured, once blood was aspirated, syringe was removed and guidewire was advanced which did not meet any resistance.
Subsequently needle was withdrawn and guidewire was left in place. Ultrasound was used again to confirm presence of guidewire inside the vein lumen. A small brooke was placed at the skin and a dilator was advanced to about 50% of its length.
Dilator was removed and central venous catheter was advanced over guidewire and subsequently guidewire was removed. All 3 ports were capped and they were easy to flush and were withdrawing blood without any resistance. Central line was sutured to
the skin and dressing was applied.
Ultrasound of the lungs was performed and good lung sliding was obtained. Patient stayed hemodynamically stable through the procedure.
Complications: None
Blood loss: 1-2 ml
Time spent: 25 min
[2024-11-23] MEDS: CRESTOR 40 MG PO (17:50)
[2024-11-23] MEDS: MAXIPIME 1000 MG IV (17:50)
[2024-11-23] MEDS: STERILE WATER FOR INJECTION 10 ML IV (17:50)
[2024-11-23] MEDS: DOBUTREX 250 IV (18:03)
--- NOTE | 2024-11-23 18:19 | W.PN.UPDATE ---
Update Note
Progress Note Update
Patient with continued rapid atrial fibrillation with hypotension. Patient requiring further titration of Levophed and vasopressin.
Lactate now 2.5 and bicarb at 16. I suspect he continues with progressive cardiogenic shock in rapid atrial fibrillation.
He was bolused again with IV amiodarone with minimal response. With continued hypotension case was discussed with the [place] shock team and Dr. Ramirez.
I had a lengthy discussion with the patient and his . They are agreeable to be transferred to the [facility] for further management including management of cardiogenic shock.
They understand that this will likely require invasive pulmonary artery catheters and other testing.
CC time 1 hour 25min
Patient has been accepted for transfer.
[2024-11-23] MEDS: SODIUM BICARBONATE 1150 MEQ IV (18:24)
[2024-11-23 18:41] LABS: Troponin I 120.000 ng/ml
--- NOTE | 2024-11-23 19:26 | PTCARENOTE ---
Pt received to ICU bed 3371 from rapid response in IVU for afib RVR with hypotension. Pt started on Amio gtt and Levophed during rapid. After arriving to unit, BP continued to decreased. Levophed titrated per proctocol. Vasopressin started.
Heparin gtt started. A-line was placed by Dr Albright. Dr Song notified of continued hypotension and increased pressor requirements. MD came to bedside. Anesthesia was called for bedside cardioversion which was unsuccessful. IV Digoxin given
per order with no improvement of HR. Blood culturesx2 sent and antibiotic started. Bedside ECHO completed. Right IJ CVC placed at bedside by Dr Albright. Dobutamine gtt and Bicarb gtt started. BP very labile requiring frequent titration of
Levophed.
Pt remains AAOx3. Afib HR 110-130s. Lungs diminished, SpO2 96-100% on 4L NC. Orthopneic. Urine myrtle via condom catheter.
Pt's updated frequently at bedside.
[2024-11-23 19:53] LABS: APTT 51.3 Sec (23.4-35.0)
[2024-11-23] MEDS: LEVOPHED 258 MG IV (20:12)
[2024-11-23] MEDS: COREG PO (20:49)
--- NOTE | 2024-11-23 22:35 | PTCARENOTE ---
Pt received start of shift, HR afib rates 120s-140s. IV gtts infusing as ordered/charted in worklist. Pt AAOx4, flat affect. 4L NC. Labs drawn and sent. Levo gtt switched to double concentrated levo gtt. Titrating as ordered. Oliguric - myrtle urine
from condom cath. Pt and pt's updated on plan of care.
Convert to ST on telemetry ~2109.
[facility] transport center in contact with bed for pt at [place] 8th floor [place], Cardiac ICU Rm [id number]. Report given to ASSISTANT MANAGER/EMBALMER. [facility] Copy of chart and transfer paperwork sent with pt.
--- NOTE | 2024-11-25 09:06 | CM ---
Patient was transferred to [facility] on 11/23/24 @ 22:20 for specialized acute care services. [place] transport.
[2024-11-26 07:02] LABS: ACT-LR - POC 305 Seconds (116-155)
[2024-11-26 07:02] LABS: ACT-LR - POC 234 Seconds (116-155)
== END 2024-11-23 22:20 | disposition short-term general hospital (02) | DRG 321 ==
LOC: ICU 22:18
PROVIDERS: Internal Medicine Cardiovascular Disease; Nurse Practitioner; Nurse Practitioner Primary Care; ADMITTING PHYSICIAN Internal Medicine Interventional Cardiology; CONSULT PHYSICIAN Internal Medicine Infectious Disease; EMERGENCY PHYSICIAN Emergency Medicine; FAMILY PHYSICIAN Internal Medicine; OTHER PHYSICIAN Internal Medicine
PROC: 4A023N7 Measurement of Cardiac Sampling and Pressure, Left Heart, Percutaneous Approach (ICD-10-PCS; 2024-11-21)
PROC: B2111ZZ Fluoroscopy of Multiple Coronary Arteries using Low Osmolar Contrast (ICD-10-PCS; 2024-11-21)
PROC: B240ZZ3 Ultrasonography of Single Coronary Artery, Intravascular (ICD-10-PCS; 2024-11-21)
PROC: 027035Z Dilation of Coronary Artery, One Artery with Two Drug-eluting Intraluminal Devices, Percutaneous Approach (ICD-10-PCS; 2024-11-21)
PROC: 03HY32Z Insertion of Monitoring Device into Upper Artery, Percutaneous Approach (ICD-10-PCS; 2024-11-23)
PROC: 02HV33Z Insertion of Infusion Device into Superior Vena Cava, Percutaneous Approach (ICD-10-PCS; 2024-11-23)
PROC: 5A2204Z Restoration of Cardiac Rhythm, Single (ICD-10-PCS; 2024-11-23)
DX: I21.09 ST elevation (STEMI) myocardial infarction involving other coronary artery of anterior wall (principal); I50.23 Acute on chronic systolic (congestive) heart failure; R57.0 Cardiogenic shock; E87.20 Acidosis, unspecified; N17.9 Acute kidney failure, unspecified; I47.29 Other ventricular tachycardia; I48.91 Unspecified atrial fibrillation; I25.10 Atherosclerotic heart disease of native coronary artery without angina pectoris; I11.0 Hypertensive heart disease with heart failure; I25.5 Ischemic cardiomyopathy; E03.9 Hypothyroidism, unspecified; E78.5 Hyperlipidemia, unspecified; I07.1 Rheumatic tricuspid insufficiency; D72.829 Elevated white blood cell count, unspecified; R30.0 Dysuria; I27.20 Pulmonary hypertension, unspecified; Z86.73 Personal history of transient ischemic attack (TIA), and cerebral infarction without residual deficits; Z87.440 Personal history of urinary (tract) infections; Z79.82 Long term (current) use of aspirin
CPT/HCPCS: 71045; 80048; 80061; 81003; 81015; 82805; 82810; 83036; 83605; 83735; 83880; 84439; 84443; 84484; 85025; 85027; 85347; 85730; 87040; 87086; 92978; 93005; 93306; 93308; 93321; 93325; 93458; 99152; 99153; 99285; C1725; C1753; C1769; C1874; C1894; C9606; J0153; J0282; J1160; J1250; Q9967